=== PATIENT | female | born 1970 | race Two or more races ===

== ENCOUNTER 2022-08-10 19:27 | Emergency (ER) | payer MEDICAID, OTHER ==
[~2022-08-10] VITALS: Ht 162.6 cm; Wt 99.1 kg
[2022-08-10 19:45] VITALS: BP 126/59
[2022-08-10] MEDS ORDERED: BACIOIN49 OP (20:26)
== END 2022-08-10 20:46 | disposition home or self-care (01) ==
LOC: ER 19:27
DX: H00.015 Hordeolum externum left lower eyelid (principal)